=== PATIENT | female | born 1970 | race Caucasian/White ===

== ENCOUNTER 2018-02-14 11:55 | Emergency (ER) | payer OTHER ==
[~2018-02-14] VITALS: Ht 170.2 cm; Wt 63.5 kg
[~2018-02-14 11:55] MED LIST: CIPRO500 MG PO; LEVOTHYROXIN0.125 M1; MEDROLDOSEPACK PO; NORCO 5-325 TA1 EACH PO; ONDANSETRON HCL4 M2 PO; ULTRAM 50MG TAB50 MG PO
[2018-02-14 12:12] LABS: URINE BILIRUBIN NEGATIVE (Negative); URINE BLOOD 2+ (Negative); URINE CLARITY CLEAR; URINE COLOR YELLOW; URINE GLUCOSE-RANDOM NEGATIVE (Negative); URINE KETONES 1+ (Negative); URINE PROTEIN TRACE (Negative)
[2018-02-14 12:13] LABS: URINE LEUKOCYTES-REFLEX 2+ (Negative); URINE NITRITE-REFLEX POSITIVE (Negative)
[2018-02-14 12:20] LABS: BACTERIA-REFLEX >30 Many /HPF (None Seen); CASTS None Seen /LPF (None Seen); CRYSTALS None Seen /LPF (None Seen); MUCUS 0-3 Light strn/LPF (None Seen); SQUAMOUS NONE SEEN /LPF (0-3); URINE RBC 0-2 Rare /HPF (0-2); URINE WBC-REFLEX >25 Many /HPF (0-5)
[2018-02-14 12:46] LABS: AMP/METHAMP POSITIVE (Negative); BARBITURATES Negative (Negative); BENZODIAZEPINES Negative (Negative); COCAINE Negative (Negative); METHADONE Negative (Negative); OPIATES Negative (Negative); PCP Negative (Negative); THC Negative (Negative)
[2018-02-14] MEDS ORDERED: MACROBID 100 M100 M1 PO (12:48)
[2018-02-14 12:50] LABS: INFLUENZA A ANTIGEN None Detected (None Detect); INFLUENZA B ANTIGEN None Detected (None Detect)
[2018-02-14 12:54] VITALS: BP 112/72
== END 2018-02-14 12:55 | disposition home or self-care (01) ==
LOC: M.ERS 11:55
PROVIDERS: Nurse Practitioner Family
DX: N39.0 Urinary tract infection, site not specified (principal); F17.200 Nicotine dependence, unspecified, uncomplicated

== ENCOUNTER 2020-08-28 19:48 | Emergency (ER) | payer OTHER ==
[~2020-08-28] VITALS: Ht 170.2 cm; Wt 65.8 kg
[~2020-08-28 19:48] MED LIST changes: -LEVOTHYROXIN0.125 M1; +MACROBID 100 M100 M1 PO; +SYNTHROID75 MC1 PO
[2020-08-28 21:05] VITALS: BP 112/70
== END 2020-08-28 21:05 | disposition home or self-care (01) ==
LOC: M.ERS 19:48
DX: U07.1 COVID-19 (principal); F17.210 Nicotine dependence, cigarettes, uncomplicated

== ENCOUNTER 2021-04-06 16:58 | Emergency (ER) | payer OTHER, MEDICAID ==
[~2021-04-06] VITALS: Ht 170.2 cm; Wt 70.3 kg
[2021-04-06 17:25] VITALS: BP 134/84
[2021-04-06 17:44] LABS: ABSOLUTE LYMPHOCYTES 1.4 thou/uL (0.8-5.3); ABSOLUTE MONOCYTES 0.6 thou/uL (0.0-1.2); ABSOLUTE NEUTROPHILS 3.9 thou/uL (1.6-8.1); BASOPHILS 0.5 %; EOSINOPHILS 0.3 %; HEMOGLOBIN 13.1 gm/dL (12.0-15.0); LYMPHOCYTES 24.1 %; MCH 29.6 pg (26.0-34.0); MCHC 32.7 g/dL (28.0-37.0); MCV 90.5 fL (80.0-100.0); MONOCYTES 9.5 %; NUCLEATED RBCS 0 /100WBC; PLATELET COUNT* 320 thou/uL (150-400); POLYS 65.6 %; RBC 4.42 mil/uL (4.20-5.00); RDW-CV 15.8 % (10.5-14.5)
[2021-04-06 17:53] LABS: CALCIUM 6.7 mg/dL (8.5-10.1); CREATININE 1.1 mg/dL (0.6-1.3); POTASSIUM 3.4 mmol/L (3.5-5.1)
[2021-04-06 18:04] LABS: ALBUMIN 3.2 g/dL (3.4-5.0); TOTAL BILIRUBIN 0.8 mg/dL (<0.1-1.0); TOTAL PROTEIN 6.7 g/dL (6.4-8.2)
[2021-04-06 21:06] LABS: BE -4.6 mmol/L (-2 to +3); PO2 VENOUS 25.5 mmHg (35.0-45.0)
[2021-04-06 22:08] LABS: BE -6.9 mmol/L (-2 to +3); PCO2 39.3 mmHg (35.0-45.0); PO2 61.5 mmHg (75.0-100.0); pH 7.302 (7.340-7.450)
[2021-04-07 01:15] VITALS: BP 101/70
--- NOTE | 2021-04-07 11:31 | EKG ---
[place] [address] ELECTROCARDIOGRAM REPORT Name: RODERICK HINOJOSA Room: [place] [address] DIS IN .R.#: [id number] Admission: 04/06/21 Attend Phys: Jeremías Ralph, Discharge: 04/07/21 Date of : 74 Date of Service: 04/06/21 1719 Report #: [id number] THIS REPORT FOR: //name// [facility] ED Test Date: 2021-04-06 Test Time: 17:19:13 Pat Name: RODERICK HINOJOSA Department: Room: [facility] Gender: F Media Manager: : 1970 Requested By: Roman An Order Number: [id number] MD: Rolf Elizalde Measurements Intervals [place] Rate: 97 P: 58 OR: 143 QRS: 104 QRSD: 82 T: -55 QT: 392 QTc: 498 Interpretive Statements Sinus rhythm Probable left atrial enlargement Right axis deviation Low voltage, precordial leads Borderline repolarization abnormality Borderline prolonged QT interval No previous ECG available for comparison Electronically Signed On 04-07-2021 11:31:37 [employer] by Rolf Elizalde [email or web address] <ELECTRONICALLY SIGNED> By: Rolf Elizalde MD, FACC 04/07/21 1131 1719 1719 Rolf Elizalde MD, FAC /EPI
[2021-04-12 18:06] LABS: MYCOPLASMA PNEUMONIA IgG 454 U/mL (0-99); MYCOPLASMA PNEUMONIA IgM <770 U/mL (0-769)
== END 2021-04-06 19:15 | disposition still patient (30) ==
LOC: M.ERS 16:58 → M.TBA-ER 18:54 → M.ERS 19:15 → M.TBA-ER 22:53
PROVIDERS: Emergency Medicine; Internal Medicine; Internal Medicine Critical Care Medicine; Student in an Organized Health Care Education/Training Program
DX: I50.9 Heart failure, unspecified (principal); Z20.822 Contact with and (suspected) exposure to COVID-19; J96.90 Respiratory failure, unspecified, unspecified whether with hypoxia or hypercapnia; E03.9 Hypothyroidism, unspecified; Z79.899 Other long term (current) drug therapy